=== PATIENT | female | born 1970 | race Caucasian/White ===

== ENCOUNTER → 2016-07-18 | Outpatient (CLI) | payer BC ==
--- NOTE | 2016-07-18 16:03 | Diagnostic Imaging Report ---
Indication: PAIN Technique: 3 views left hand Comparison: none Findings: No acute fractures. No dislocations. There is mild narrowing of the second through fifth proximal interphalangeal joints. Impression: No acute bony trauma Mild narrowing of the second through fifth proximal interphalangeal joints, consistent with arthropathy, either inflammatory or degenerative.
--- NOTE | 2016-07-18 17:03 | Diagnostic Imaging Report ---
Indication: PAIN Technique: 3 views right hand Comparison: none Findings: There is a somewhat unusual slightly irregular appearance to the terminal tuft of the fourth distal phalanx.. Suspect that this is baseline for this patient, as the contralateral slight has a somewhat similar although less striking appearance. No definite acute fractures or dislocations otherwise. There is mild narrowing of the second third and fourth proximal interphalangeal joints. Impression: Somewhat unusual irregular appearance to the fourth distal phalangeal terminal tuft. Suspect baseline for this patient, but subtle nondisplaced terminal tuft fracture not completely excludable. Correlate with clinical history and findings Narrowing of the second third and fourth proximal interphalangeal joints, consistent with arthropathy, may be degenerative or inflammatory
--- NOTE | 2016-07-19 08:32 | Diagnostic Imaging Report ---
Indication: PAIN Technique: 4 views of the lumbar spine Comparison: None Findings: There is a mild thoracolumbar levoscoliotic deformity. Otherwise normal bony alignment. Vertebral body heights are preserved. Disc spaces are preserved. No acute fractures. No dislocations. Pedicles are intact. Sacral arches are preserved. Sacroiliac joint spaces and facet joint spaces are preserved Impression: Minimal thoracolumbar scoliotic deformity. Otherwise unremarkable.
== END | disposition home or self-care (01) ==
LOC: RAD 12:41
DX: M54.5 Low back pain (principal); M25.542 Pain in joints of left hand; M25.541 Pain in joints of right hand
CPT/HCPCS: 72110